=== PATIENT | male | born 1955 | race Caucasian/White ===

== ENCOUNTER 2017-07-11 08:56 | Emergency (ER) | payer MEDICARE, OTHER ==
[2017-07-11] MEDS ORDERED: Lidocaine 2% VISCOUS* 15 ML UDC PO ONE (10:14)
[2017-07-11] MEDS ORDERED: Al Hydrox/Mg Hydrox/Simet LIQ* 30 ML UDC PO ONE (10:14)
[2017-07-11] MEDS ORDERED: Nitroglycerin 2% OINT* 1 GM PAK TOPICAL ONE (10:28)
--- NOTE | 2017-07-11 10:48 | RAD ---
HISTORY: Chest pain COMPARISONS: March 15, 2011 VIEWS: 1: frontal portable view of the chest at 10:27 AM FINDINGS: LINES AND TUBES: None. CARDIOMEDIASTINAL SILHOUETTE: The cardiomediastinal silhouette is normal for portable technique. PLEURA: The costophrenic angles are sharp. No pleural abnormalities are noted. LUNG PARENCHYMA: The lungs are clear. ABDOMEN: The upper abdomen is clear. There is no subphrenic gas. BONES AND SOFT TISSUES: The patient is status post median sternotomy. IMPRESSION: NO ACTIVE CARDIOPULMONARY DISEASE.
[2017-07-11 11:07] LABS: ABS Basophils 0 10^3/ul (0-0.2); ABS Eosinophils 0.2 10^3/ul (0-0.6); ABS Lymphocytes 1.7 10^3/ul (1.0-4.8); ABS Monocytes 0.4 10^3/ul (0-0.8); ABS Neutrophils 2.6 10^3/ul (1.5-7.7); ABS Nucleated RBC 0 10^3/ul; Eosinophil % 4.7 % (0-6); Hematocrit 45 % (42-52); Hemoglobin 15.3 g/dl (14.0-18.0); Lymphocyte % 34.3 % (25-47); Mean Corpuscular HGB Conc 34 g/dl (31-36); Mean Corpuscular Hemoglobin 31 pg (27-31); Mean Corpuscular Volume 92 fL (80-94); Mean Platelet Volume 8 um3 (7.4-10.4); Nucleated Red Blood Cells % 0.1; Platelet Count 156 10^3/ul (150-450); Red Cell Distribution Width 14 % (10.5-15)
[2017-07-11 11:22] LABS: EGFR Non-African American 73.5 (>60)
[2017-07-11 12:31] VITALS: BP 119/68
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
== END 2017-07-11 12:30 | disposition left against medical advice (07) ==
LOC: ED 08:56
DX: I20.9 Angina pectoris, unspecified (principal); Z53.21 Procedure and treatment not carried out due to patient leaving prior to being seen by health care provider; I25.10 Atherosclerotic heart disease of native coronary artery without angina pectoris; Z95.1 Presence of aortocoronary bypass graft; J45.909 Unspecified asthma, uncomplicated; E78.00 Pure hypercholesterolemia, unspecified; I10 Essential (primary) hypertension; I25.2 Old myocardial infarction; Z72.0 Tobacco use
CPT/HCPCS: 36415; 71045; 80053; 83605; 84484; 85025; 93005; 99283; A9270-GY

== ENCOUNTER 2017-07-24 23:20 | Observation (INO) | payer MEDICARE, OTHER ==
[2017-07-25 00:29] LABS: ABS Basophils 0 10^3/ul (0-0.2); ABS Eosinophils 0.4 10^3/ul (0-0.6); ABS Lymphocytes 1.9 10^3/ul (1.0-4.8); ABS Monocytes 0.6 10^3/ul (0-0.8); ABS Neutrophils 3.3 10^3/ul (1.5-7.7); ABS Nucleated RBC 0 10^3/ul; Eosinophil % 6.8 % (0-6); Hematocrit 42 % (42-52); Hemoglobin 14.4 g/dl (14.0-18.0); Lymphocyte % 30.8 % (25-47); Mean Corpuscular HGB Conc 34 g/dl (31-36); Mean Corpuscular Hemoglobin 31 pg (27-31); Mean Corpuscular Volume 92 fL (80-94); Mean Platelet Volume 8 um3 (7.4-10.4); Nucleated Red Blood Cells % 0.1; Platelet Count 165 10^3/ul (150-450); Red Cell Distribution Width 14 % (10.5-15); White Blood Count 6.3 10^3/ul (3.5-10.8)
[2017-07-25 00:34] LABS: INR 0.96 (0.77-1.02)
[2017-07-25 00:40] LABS: EGFR Non-African American 60.4 (>60)
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
[2017-07-25] MEDS ORDERED: Docusate CAP* 100 MG PO PRN (01:22)
[2017-07-25] MEDS ORDERED: Senna TAB PO PRN (01:22)
[2017-07-25] MEDS ORDERED: Al Hydrox/Mg Hydrox/Simet LIQ* 30 ML UDC PO PRN (01:22)
[2017-07-25] MEDS ORDERED: Ondansetron INJ* 2 MG/ML VIAL IV PRN (01:22)
[2017-07-25] MEDS ORDERED: Aspirin TAB* 325 MG PO ONE (01:39)
[2017-07-25] MEDS ORDERED: Mouth Piece, Nicotine* 1 EACH CARTRIDGE INH PRN ×2 (01:40)
[2017-07-25] MEDS ORDERED: Nicotine Inhaler* 10 MG AMP INH PRN (01:40)
[2017-07-25] MEDS ORDERED: Albuterol 2.5 MG/3 ML NEB.SOL* (0.083%) INH PRN (01:41)
[2017-07-25] MEDS: Acetaminophen TAB* 325 MG PO PRN ×2 (03:23→10:45)
[2017-07-25] MEDS: NS 0.9% 1000 ML* 1,000 ML IV SCH ×2 (03:24→10:48)
[2017-07-25 05:13] LABS: EGFR Non-African American 65.3 (>60)
[2017-07-25] MEDS: Heparin VIAL(*) 5000 UNITS/ML VIAL (FIVE THOUSAND) SUBCUT SCH ×2 (05:23→15:08)
--- NOTE | 2017-07-25 08:03 | RAD ---
INDICATION: Chest pain. COMPARISON: Comparison is made with a prior study from July 11, 2017. TECHNIQUE: A portable view of the chest was obtained. FINDINGS: The patient is status post coronary artery bypass surgery. Note is made of multiple sternal sutures. The heart is within normal limits in size. The lungs are underinflated and grossly clear. No pleural effusion is seen. IMPRESSION: NO EVIDENCE FOR ACUTE FINDING.
[2017-07-25] MEDS ORDERED: Sertraline* 100 MG TAB PO SCH (09:00)
[2017-07-25] MEDS ORDERED: Mometasone/Formoter 100/5 MDI INH SCH (09:00)
[2017-07-25] MEDS ORDERED: buPROPion SR TAB.SR* 150 MG PO SCH (09:00)
[2017-07-25] MEDS ORDERED: Clopidogrel TAB* 75 MG PO SCH (09:00)
[2017-07-25] MEDS ORDERED: Aspirin EC Low Dose* 81 MG TAB.EC PO SCH (09:00)
[2017-07-25] MEDS ORDERED: Lisinopril TAB* 5 MG PO SCH (09:00)
[2017-07-25] MEDS ORDERED: Regadenoson* 0.4 MG/5 ML SYRINGE ONE (09:40)
[2017-07-25] MEDS ORDERED: Morphine INJ* 2 MG/ML 1 ML CARPUJECT ONE (11:42)
--- NOTE | 2017-07-25 11:54 | PN ---
Subjective Date of Service: 07/25/17 Objective Active Medications: Acetaminophen (Tylenol Tab*) 650 mg PO Q4H PRN Al Hydrox/Mg Hydrox/Simethicone (Maalox Plus*) 30 ml PO Q6H PRN Albuterol (Ventolin 2.5 Mg/3 Ml Neb.Ariane*) 2.5 mg INH Q4H PRN Aspirin (Aspirin Ec Low Dose*) 81 mg PO DAILY [facility] Atorvastatin Calcium (Lipitor*) 20 mg PO 2100 [facility] Atorvastatin Calcium (Lipitor*) 40 mg PO 2100 [facility] Bupropion HCl (Wellbutrin Sr Tab*) 150 mg PO DAILY [facility] Clopidogrel Bisulfate (Plavix Tab*) 75 mg PO DAILY [facility] Device (Nicotine Mouth Piece*) 1 each INH .USE WITH NICOTROL PRN Docusate Sodium (Colace Cap*) 100 mg PO BID PRN Heparin Sodium (Porcine) (Heparin Vial(*)) 5,000 units SUBCUT Q8HR [facility] Sodium Chloride (Ns 0.9% 1000 Ml*) 1,000 mls @ 150 mls/hr IV PER RATE [facility] Lisinopril (Prinivil Tab*) 5 mg PO DAILY [facility] Mometasone Furoate/Formoterol Fumar (Dulera 100/5 Mdi*) 2 puff INH BID [facility] Nicotine (Nicotine Inhaler*) 10 mg INH Q2H PRN Ondansetron HCl (Zofran Inj*) 4 mg IV Q4H PRN Senna (Senokot Tab*) 1 tab PO BID PRN Sertraline HCl (Zoloft*) 100 mg PO DAILY [facility] Tamsulosin HCl (Flomax Cap*) 0.4 mg PO BEDTIME [facility] Vital Signs: Temp Pulse Resp BP Pulse Ox 98.4 F 66 16 121/73 95 07/25/17 02:40 07/25/17 07:13 07/25/17 07:13 07/25/17 07:13 07/25/17 07:13 Oxygen Devices in Use Now: None Result Diagrams: 07/25/17 00:08 07/25/17 04:19 Additional Lab and Data: . Assess/Plan/Problems-Billing Assessment: Mr. Gracia is a 62 yo male with a PMH of COPD, hyperlipidemia, depression who was admitted on 07/25/17 with chest pain - Patient Problems (1) Chest pain Comment: - Stress test pending. - Trops negative. - Continue aspirin, plavix, atorvastatin. (2) COPD (chronic obstructive pulmonary disease) (3) Hypertension Comment: - Continue lisinopril. (4) Depression Comment: - Continue sertraline, bupropion. (5) Hyperlipidemia Comment: - Continue atorvastatin. (6) DVT prophylaxis Comment: - Heparin SQ. (7) Full code status Comment: Status and Disposition: OBV. Anticipate discharge to home when medically stable.
--- NOTE | 2017-07-25 12:34 | RAD ---
HISTORY: Chest pain COMPARISONS: July 09, 2014 TECHNIQUE: A 1 day stress/rest myocardial perfusion study was performed, with pharmacologic stress. The stress portion was monitored by Dr. Wells. Gated SPECT imaging was performed, without CT-based attenuation correction secondary patient body habitus. DOSE: Stress: Technetium 99m tetrofosmin, 25.6 millicuries, injected at 11:30 AM on July 25, 2017 Rest: Technetium 99m tetrofosmin, 10.19 millicuries, injected at 6:50 AM on July 25, 2017 Pharmacologic agent: Lexiscan FINDINGS: CARDIAC MONITORING: No EKG criteria of ischemia with stress. EF: 58% TID: 1.14 MOTION: Normal motion, with normal wall thickening. PERFUSION: There are small reversible defects of the anterior wall and the lateral wall towards the apex. OTHER: None IMPRESSION: SMALL REVERSIBLE DEFECTS OF THE ANTERIOR WALL AND LATERAL WALL TOWARDS THE APEX CONCERNING FOR AREAS OF ISCHEMIA. ASSESSMENT: LOW RISK. Based on imaging criteria from ACC/AHA 2002. Guideline Update for the Management of Patient's with Chronic Stable Angina, table 23. Noninvasive Risk Stratification. CPT II Codes: 3570F
--- NOTE | 2017-07-25 13:11 | HP ---
CC: Jovan Smith MD HISTORY AND PHYSICAL: DATE OF ADMISSION: 07/25/17. TIME OF EVALUATION: 129. PRIMARY CARE PHYSICIAN: Jovan Smith MD. CHIEF COMPLAINT: Chest pain. HISTORY OF PRESENT ILLNESS: This is a 62-year-old male with a past medical history of coronary artery disease status post bypass, hyperlipidemia and hypertension, who presents to the emergency room with indolent ongoing left- sided chest discomfort. The patient states this has been going on for several weeks. He came to the emergency room on the first of July with this complaint. He states that they offered him an admission, but he felt like he really was not understanding what was going on and decided to leave. He states that the pain is left-sided, radiates down to his left arm and is only when he is sleeping and he wakes up with the pain. It seems to be positional as that when he cannot lie on his left side because it makes the pain come on. He has chronic shortness of breath. No recent fever, upper respiratory illness. No nausea, vomiting, or diarrhea. No abdominal discomfort. No diaphoresis. No changes in his weight. Otherwise, review of systems is negative. In the emergency room, the patient had labs and imaging. He was referred to the hospitalist service for further evaluation. PAST MEDICAL HISTORY: 1. History of coronary artery disease, status post bypass in 2007. 2. Hyperlipidemia. 3. Hypertension. 4. COPD. 5. Depression. 6. BPH. 7. Chronic back pain. MEDICATIONS: 1. Albuterol MDI two puffs every 6 hours as needed. 2. Aspirin 81 mg p.o. daily. 3. Atorvastatin 60 mg daily. 4. Bupropion 150 mg p.o. daily. 5. Plavix 75 mg p.o. daily. 6. Fluticasone-Salmeterol, 100-50 mg twice daily. 7. Ibuprofen 300 mg as needed. 8. Lisinopril 5 mg daily. 9. Sertraline 100 mg daily. 10. Tamsulosin 0.4 mg p.o. daily. ALLERGIES: No known drug allergies. FAMILY HISTORY: Mother from an accident due to grand mal seizure. Father from old age, but he had several heart attacks throughout his life. SOCIAL HISTORY: Patient lives at home with his . He still smokes half a pack per day for the past 45 to 50 years. No alcohol use. He states he was a heavy drinker back in more than 30 years ago. He is on disability since his heart attack. He states he does not have a healthcare proxy, would not designate his as she is a very simple person. CODE STATUS: Full code. REVIEW OF SYSTEMS: A 14-point review of systems as mentioned in the HPI, otherwise negative. DIAGNOSTIC STUDIES/LAB DATA: White count 6.3, hemoglobin 14.4, hematocrit 42, platelets 165, INR 0.96. Sodium 139, potassium 4.1, chloride 105, bicarb 29, BUN 21, creatinine 1.21, troponin 0.01, TSH 3.02. Radiographic data: EKG shows normal sinus rhythm. Chest x-ray shows some mild vascular congestion. ASSESSMENT: This is a 62-year-old male with a past medical history of coronary artery disease status post bypass, who presents to the emergency room with atypical chest pain. 1. Atypical chest pain. Assessment: This appears to be positional musculoskeletal related. However, this is his second visit in the past week with similar symptoms and he is high risk with his history of coronary artery disease. His initial workup is unremarkable. Plan: It is not unreasonable to admit him for observation to rule out myocardial infarction. We will trend his troponin, check a lipid panel, keep him n.p.o. and order a nuclear stress test and I will add on BNP given his chest x-ray findings. We will hold off on diuresing him at this time as he appears comfortable. 2. Chronic medical problems. We will resume his home medications. There is some discrepancy with his antidepressant agents. I would call med rec to confirm what he is actually taking. I did continue him on his bupropion and sertraline, but I would confirm with home meds if this is what he is taking. 3. FEN. As mentioned, n.p.o. 4. DVT prophylaxis. The patient scores a high risk. We will place him on heparin subcu t.i.d. 5. Code status. Full code. PATIENT TIME: Greater than 30 minutes was spent doing the history and physical , more than half the time spent in direct patient contact. [id number]/[facility] #: [id number] ILEANA
--- NOTE | 2017-07-25 13:33 | PN ---
Subjective Date of Service: 07/25/17 Interval History: Mr. Gracia reports continuing to have some pain in his left arm when he lies flat. He denies other complaint today and is very eager for discharge to home. Objective Active Medications: Acetaminophen (Tylenol Tab*) 650 mg PO Q4H PRN Al Hydrox/Mg Hydrox/Simethicone (Maalox Plus*) 30 ml PO Q6H PRN Albuterol (Ventolin 2.5 Mg/3 Ml Neb.Ariane*) 2.5 mg INH Q4H PRN Aspirin (Aspirin Ec Low Dose*) 81 mg PO DAILY [facility] Atorvastatin Calcium (Lipitor*) 40 mg PO 2100 [facility] Bupropion HCl (Wellbutrin Sr Tab*) 150 mg PO DAILY [facility] Clopidogrel Bisulfate (Plavix Tab*) 75 mg PO DAILY [facility] Device (Nicotine Mouth Piece*) 1 each INH .USE WITH NICOTROL PRN Docusate Sodium (Colace Cap*) 100 mg PO BID PRN Heparin Sodium (Porcine) (Heparin Vial(*)) 5,000 units SUBCUT Q8HR [facility] Lisinopril (Prinivil Tab*) 5 mg PO DAILY [facility] Mometasone Furoate/Formoterol Fumar (Dulera 100/5 Mdi*) 2 puff INH BID [facility] Nicotine (Nicotine Inhaler*) 10 mg INH Q2H PRN Ondansetron HCl (Zofran Inj*) 4 mg IV Q4H PRN Senna (Senokot Tab*) 1 tab PO BID PRN Sertraline HCl (Zoloft*) 100 mg PO DAILY [facility] Tamsulosin HCl (Flomax Cap*) 0.4 mg PO BEDTIME [facility] Vital Signs - 8 hr 07/25/17 07/25/17 07:13 11:01 Temperature 98.4 F Pulse Rate 66 66 Respiratory 16 16 Rate Blood Pressure 121/73 130/70 (mmHg) O2 Sat by Pulse 95 94 Oximetry Oxygen Devices in Use Now: None Appearance: Male sitting up in chair in NAD Eyes: No Scleral Icterus Ears/Nose/Mouth/Throat: Mucous Membranes Moist Neck: Trachea Midline Respiratory: Symmetrical Chest Expansion and Respiratory Effort, Clear to Auscultation Cardiovascular: NL Sounds; No Murmurs; No JVD, No Edema Abdominal: NL Sounds; No Tenderness; No Distention Lymphatic: No Cervical Adenopathy Extremities: No Edema Skin: No Rash or Ulcers Neurological: Alert and Oriented x 3, NL Muscle Strength and Tone Nutrition: Taking PO's Result Diagrams: 07/25/17 00:08 07/25/17 04:19 Additional Lab and Data: . Assess/Plan/Problems-Billing Assessment: Mr. Gracia is a 62 yo male with a PMH of COPD, hyperlipidemia, depression who was admitted on 07/25/17 with chest pain - Patient Problems (1) Chest pain Comment: - Stress test low risk but with small areas of reversible ischemia. - Trops negative. No ischemia on EKG. - Continue aspirin, plavix, atorvastatin. - Appreciate consultation from Dr. Wells, patient not interested in cardiac cath. 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 (3) Hypertension Comment: - Continue lisinopril. - Plan to add amlodipine and metoprolol for angina. (4) Depression Comment: - Continue sertraline, bupropion. (5) Hyperlipidemia Comment: - Continue atorvastatin. (6) DVT prophylaxis Comment: - Heparin SQ. (7) Full code status Comment: Status and Disposition: OBV. Discharge to home.
[2017-07-25] MEDS ORDERED: Morphine INJ* 2 MG/ML 1 ML CARPUJECT IV PRN (14:46)
[2017-07-25 18:21] VITALS: BP 142/72
[2017-07-25] MEDS ORDERED: Atorvastatin* 20 MG TAB PO SCH (21:00)
[2017-07-25] MEDS ORDERED: Tamsulosin CAP* 0.4 MG PO SCH (21:00)
[2017-07-25] MEDS ORDERED: Atorvastatin* 40 MG TAB PO SCH (21:00)
--- NOTE | 2017-07-25 23:36 | CONS ---
CC: Hospitalist Service; Bam Wells MD * CARDIOLOGY CONSULTATION: DATE OF CONSULT: 07/25/17 HISTORY OF PRESENT ILLNESS: I was asked by hospitalist service to see this 62- year- old male patient who presented to the hospital with atypical symptoms of left arm pain for about a month. The patient is known to me from before. I follow him as an outpatient from cardiac standpoint with extensive cardiac history including coronary artery disease with history of angioplasty, stenting and CABG. In 2009, he had angioplasty and stenting of the mid RCA. He had also angioplasty of the RV branch of the RCA. He had a history of inferior wall myocardial infarction in 2007. At that time, he had CABG with NARAYANAN to the LAD, saphenous venous graft to the marginal and saphenous venous graft to the circ. He had non-ST elevation myocardial infarction after his CABG in June 2008. At that time, he had a cath and he had angioplasty and stenting of the proximal and distal mid RCA and also was found to have saphenous venous graft to be occluded. He does have history of hyperlipidemia and history of systemic arterial hypertension, obesity, current tobacco consumption. He gives no history of diabetes mellitus. He continues to smoke about half a pack every other day. He gives no symptoms of chest pain, no nausea, no vomiting, no hematochezia, no skin rash, no abdominal pain, no fever, no chills, no recent pneumonia, no syncope, no major swelling in the lower extremities. He states for a month, he had been having atypical episodes of left arm pain when he is resting actually. No jaw pain, no right arm pain, and no shortness of breath, no tachycardia, no palpitations. He underwent Myoview nuclear stress test today that was low risk and there are some concerns for reversible ischemia of the inferior wall, apex, and apical to proximal to mid segment of the lateral wall. Cardiology consult was further requested. He is chest pain free. He said he had been taking his medications all of them. PAST MEDICAL HISTORY: As outlined above. ALLERGIES: No known drug allergies. PAST SURGICAL HISTORY: As outlined above. SOCIAL HISTORY: He continues to smoke unfortunately. He gives no history of alcoholism and no drug abuse. MEDICATIONS: His medications as an inpatient include: 1. Tylenol 650 mg p.o. q.4 hours p.r.n. 2. Maalox. 3. Ventolin inhaler. 4. Aspirin 81 mg daily. 5. Lipitor 40 mg daily. 6. Plavix 75 mg daily. 7. Nicotine and also he is on heparin 5000 units subcu q.8 hours. 8. Prinivil 5 mg daily. 9. Flomax 0.4 mg daily. FAMILY HISTORY: No family history of premature coronary artery disease. PHYSICAL EXAMINATION: On exam, he is awake, alert, and oriented. He is not in acute distress. He is chest pain free. His vitals: Blood pressure is 130/70, pulse is 66, he is in sinus rhythm. Respiratory rate 18, temperature 98.4. Head Exam: Normocephalic, atraumatic head. Ears, Nose, and Throat: Essentially benign. Neck: Supple. JVP is not elevated. No carotid bruits. No masses in the neck is appreciated. Chest is clear to auscultation. No rales , no wheezes, no added sounds appreciated. Heart: Normal and regular. S1, S2. No added sounds. No gallops, no rubs. No significant murmurs appreciated. Abdomen: Benign, soft. Positive bowel sounds. Extremities: No edema. No cyanosis. No clubbing. Skin exam is normal. Psych: Normal affect and mood. 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 DIAGNOSTIC STUDIES/LAB DATA: His labs, white blood cell 6.3, hemoglobin 14.4, hematocrit 42, and platelets 165. His chemistry, sodium 139, potassium 4.1, chloride 106, platelets are 228. BUN 18, creatinine 1.13. LFTs are normal. Troponins are 0. CRP 1.21. BNP is only 22. Triglycerides 114, cholesterol 134 , LDL 70, HDL 42. TSH 3.02. His EKG from today showed him to be in sinus rhythm, heart rate 68 beats per minute. There is nondiagnostic RSR. There is posterior infarct. There are possible Q-waves with ST elevation with old inferior wall MO. Nonspecific T abnormality. The nuclear stress test as described, low risk. IMPRESSION: The patient is a 62-year-old male patient with: 1. Presentation with atypical symptom of left arm pain of unclear etiology at rest. 2. Abnormal nuclear stress test as described, low risk. 3. Known history of coronary artery disease with multiple angioplasties, stenting, and CABG as described. 4. Hyperlipidemia, on medical treatment. 5. Obesity. 6. Current tobacco consumption. 7. Abnormal EKG as described. 8. Systemic arterial hypertension. PLAN: I had a lengthy discussion with the patient. Knowing his extensive cardiac history, his symptoms, and abnormal reversible ischemia although it was low risk, my recommendation was to him to evaluate his coronary anatomy and the status of his grafts by definite evaluation with left cardiac catheterization. I made him aware of the benefits and risks, he declined, and he is aware of that. He said he had it multiple times in the past, he does not wish to proceed with it now, but he is open for adjustment of his medications accordingly. I noticed he is not on beta-nancy treatment and he is not on calcium channel nancy treatment of unclear reason for me at the present time. We made a great emphasis for aggressive lifestyle modification with low-salt low-fat diet, attempts to lose weight, physical activity as tolerated. We made great emphasis to quit smoking, I made him aware of this. I discussed him with Lindsey Flores from the hospitalist service. At the present time, we are adding Toprol XL 25 mg daily, Norvasc 2.5 mg daily. He is to continue the rest of his medications as is. He is to observe very closely for the future for any recurrent symptoms especially jaw pain, chest pain, shortness of breath, near syncope or syncope. At that time, cardiac catheterization will be discussed again and low threshold to proceed, this is his wishes. I will follow him closely once he gets discharged from the hospital. His troponins were negative. His EKG did not demonstrate any significant changes. His BNP was only 22. He has no active angina at the present time and he is not in congestive heart failure on physical exam. I answered all his concerns and questions up to his satisfaction. More than half of at least 60 plus minutes was [id number] in the education and counseling mode discussing all of the above and answering his questions. [id number]/[facility] #: [id number] ILEANA
--- NOTE | 2017-07-26 18:22 | DS ---
CC: Dr. Smith * [facility] MEDICINE DISCHARGE SUMMARY: DATE OF ADMISSION: 07/25/17 DATE OF DISCHARGE: 07/25/17 PRIMARY CARE PHYSICIAN: Dr. Smith. ATTENDING PHYSICIAN: Dr. Mani Bernal * (dictation provided by Lindsey Flores NP). PRIMARY DIAGNOSIS: Left arm and chest pain, atypical. SECONDARY DIAGNOSES: 1. History of coronary artery disease with coronary artery bypass grafting in 2007. 2. Hyperlipidemia. 3. Hypertension. 4. Chronic obstructive pulmonary disease. 5. Depression. 6. Benign prostatic hypertrophy. 7. Chronic back pain. MEDICATIONS AT THE TIME OF DISCHARGE: 1. Amlodipine 2.5 mg p.o. daily (new prescription). 2. Metoprolol succinate 25 mg p.o. daily (new prescription). 3. Bupropion SR 150 mg p.o. b.i.d. 4. Tamsulosin 0.8 mg p.o. at bedtime. 5. Sertraline 100 mg p.o. daily. 6. Pravastatin 80 mg p.o. at bedtime. 7. Lisinopril 5 mg p.o. daily. 8. Clopidogrel 75 mg p.o. daily. 9. Atorvastatin 40 mg p.o. daily. 10. Aspirin 81 mg p.o. daily. 11. Albuterol 2 puffs inhaled q.6 hours p.r.n. shortness of breath. 12. Advair Diskus 100/500 one puff inhaled b.i.d. HOSPITAL COURSE: Mr. Gracia is a 62-year-old male with a past medical history of coronary artery disease with CABG in 2007, who presented to the hospital on with concern for chest pain and pain radiating down his left arm. Please see the dictated H and P from Juana Koo DO for complete details. In brief , the patient states he had several weeks of this pain. It seemed to be positional in nature and he felt it most when lying flat in bed. He never experienced it with activity, although his activity level is quite limited. In the emergency room, Mr. Gracia had a troponin, which was 0.01. He had an EKG which showed no evidence of ischemia. He was placed on observation in the hospital to rule out acute coronary syndrome. Mr. Gracia had a second troponin, which was 0.00. He went on to have a stress test today, which was read as follows: "Small reversible defects of the anterior wall and lateral wall towards the apex concerning for areas of ischemia. Low risk." Because of this abnormality, I did ask the patient to be seen in consultation by Dr. Wells. I refer you to his note for complete details; however, he discussed the case at length with Mr. Gracia, who indicated that he is not interested in going on for any cardiac catheterization at this time or in the future. Dr. Wells felt that the pain was atypical, but that he could benefit from a more intensified medical management of his coronary artery disease. Therefore, the patient has been placed on amlodipine and metoprolol in addition to his home lisinopril, aspirin and Plavix. He will be following up with Dr. Wells outpatient closely. In terms of the origin of the patient's pain, it appears to be more cervical in nature, but as the cardiac origin was ruled out, I think the patient is safe for followup with Dr. Smith as an outpatient for MRI as needed. DISPOSITION: To home. DIET: Heart healthy. ACTIVITY: As tolerated. FOLLOWUP PLANS: 1. Please follow up with Dr. Smith. The patient has been asked to call for an appointment in the next 1 to 2 weeks. 2. Please follow up with Dr. Wells. The patient was asked to call for an appointment in the next 1 to 2 weeks. TIME SPENT: Approximately 60 minutes was spent on the discharge of this patient , more than half the time was spent with the patient at the bedside reviewing the events leading up to this hospitalization, performing the physical examination and reviewing my plan of care. LINDSEY FLORES, ANDREAS [id number]/[facility] #: [id number] ILEANA
== END 2017-07-25 19:55 | disposition home or self-care (01) ==
LOC: ED 23:20 → MEDTELE 07-25 01:22
PROVIDERS: ADMIT Pediatrics; ATTEND Pediatrics
DX: R07.89 Other chest pain (principal); I25.10 Atherosclerotic heart disease of native coronary artery without angina pectoris; Z95.5 Presence of coronary angioplasty implant and graft; E78.5 Hyperlipidemia, unspecified; I10 Essential (primary) hypertension; G47.00 Insomnia, unspecified; R06.02 Shortness of breath; I25.2 Old myocardial infarction; Z79.82 Long term (current) use of aspirin; F17.210 Nicotine dependence, cigarettes, uncomplicated; J44.9 Chronic obstructive pulmonary disease, unspecified; D29.1 Benign neoplasm of prostate; F32.9 Major depressive disorder, single episode, unspecified; M79.602 Pain in left arm; E66.9 Obesity, unspecified; M54.9 Dorsalgia, unspecified; G89.29 Other chronic pain
CPT/HCPCS: 36415; 71045; 78452; 80048; 80053; 80061; 83605; 83690; 83735; 83880; 84443; 84484; 85025; 85379; 85610; 85652; 85730; 86140; 93005; 93017; 94640; 96360; 99285; A9270-GY; A9502; G0378; J1644; J2270; J2405; J2785

== ENCOUNTER 2017-09-20 04:03 | Emergency (ER) | payer MEDICARE ==
[2017-09-20] MEDS ORDERED: Tamsulosin CAP* 0.4 MG PO ONE (04:20)
[2017-09-20 05:23] LABS: ABS Basophils 0 10^3/ul (0-0.2); ABS Eosinophils 0.3 10^3/ul (0-0.6); ABS Lymphocytes 1.8 10^3/ul (1.0-4.8); ABS Monocytes 0.6 10^3/ul (0-0.8); ABS Neutrophils 4.3 10^3/ul (1.5-7.7); ABS Nucleated RBC 0 10^3/ul; Eosinophil % 3.8 % (0-6); Hematocrit 44 % (42-52); Lymphocyte % 25.4 % (25-47); Mean Corpuscular HGB Conc 34 g/dl (31-36); Mean Corpuscular Hemoglobin 32 pg (27-31); Mean Corpuscular Volume 93 fL (80-94); Mean Platelet Volume 8.1 um3 (7.4-10.4); Nucleated Red Blood Cells % 0; Platelet Count 165 10^3/ul (150-450); Red Blood Count 4.76 10^6/ul (4.0-5.4); Red Cell Distribution Width 15 % (10.5-15)
[2017-09-20 05:30] LABS: Urine Appearance Clear; Urine Blood 2+ (Negative); Urine Color Yellow; Urine Ketones Negative (Negative); Urine Protein Negative (Negative); Urine Specific Gravity 1.019 (1.010-1.030); Urine Urobilinogen Negative (Negative)
[2017-09-20 05:37] LABS: EGFR Non-African American 63.4 (>60)
[2017-09-20 06:12] VITALS: BP 121/70
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
== END 2017-09-20 06:12 | disposition home or self-care (01) ==
LOC: ED 04:03
DX: R33.9 Retention of urine, unspecified (principal); N40.0 Benign prostatic hyperplasia without lower urinary tract symptoms; I25.10 Atherosclerotic heart disease of native coronary artery without angina pectoris; E78.00 Pure hypercholesterolemia, unspecified; I10 Essential (primary) hypertension; I25.2 Old myocardial infarction; J45.909 Unspecified asthma, uncomplicated; Z95.1 Presence of aortocoronary bypass graft; F17.210 Nicotine dependence, cigarettes, uncomplicated
CPT/HCPCS: 36415; 51702; 80048; 81003; 81015; 85025; 87086; 99283

== ENCOUNTER 2017-12-27 10:34 | Emergency (ER) | payer MEDICARE ==
[2017-12-27] MEDS ORDERED: Aspirin 81 mg CHEW TAB* 81 MG TAB.CHEW PO ONE (10:43)
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
[2017-12-27 11:04] LABS: ABS Basophils 0 10^3/ul (0-0.2); ABS Eosinophils 0.3 10^3/ul (0-0.6); ABS Lymphocytes 1.6 10^3/ul (1.0-4.8); ABS Monocytes 0.6 10^3/ul (0-0.8); ABS Nucleated RBC 0 10^3/ul; Hematocrit 45 % (42-52); Hemoglobin 15.8 g/dl (14.0-18.0); Mean Corpuscular HGB Conc 35 g/dl (31-36); Mean Corpuscular Hemoglobin 32 pg (27-31); Mean Corpuscular Volume 93 fL (80-94); Mean Platelet Volume 7.6 um3 (7.4-10.4); Nucleated Red Blood Cells % 0.1; Platelet Count 179 10^3/ul (150-450); Red Blood Count 4.87 10^6/ul (4.00-5.40); Red Cell Distribution Width 15 % (10.5-15); White Blood Count 6.6 10^3/ul (3.5-10.8)
--- NOTE | 2017-12-27 11:27 | RAD ---
Indication: Chest pain; LEFT chest/rib pain since Saturday. Cardiac disease. Respiratory disease. Comparison: December 09, 2017 CT abdomen Technique: Upright AP 1056 hours Report: Moderate prominence of the interstitial markings without change. No new pulmonary opacity, pleural effusion, or pneumothorax. Median sternotomy wires. Negative for cardiomegaly. Unremarkable central pulmonary vasculature and mediastinal contours. No rib fracture visualized. IMPRESSION: #. Chronic moderate prominence of interstitial markings. #. No superimposed acute cardiopulmonary process evident.
--- NOTE | 2017-12-27 11:40 | RAD ---
HISTORY: rib pain, trauma COMPARISONS: None VIEWS: 5, Frontal view of the chest with frontal and oblique views of the left hemithorax FINDINGS: There is no displaced rib fracture or pneumothorax. The visualized lungs are clear. The patient is status post median sternotomy. There is a scoliotic curvature of the spine. Degenerative changes are noted. IMPRESSION: NO DISPLACED RIB FRACTURE OR PNEUMOTHORAX
[2017-12-27] MEDS ORDERED: HYDROcodone/ACETAMIN 5-325 MG* 1 TAB PO ONE (12:14)
[2017-12-27 12:47] VITALS: BP 114/81
== END 2017-12-27 12:48 | disposition home or self-care (01) ==
LOC: ED 10:34
DX: S20.20XA Contusion of thorax, unspecified, initial encounter (principal); W01.0XXA Fall on same level from slipping, tripping and stumbling without subsequent striking against object, initial encounter; Y92.9 Unspecified place or not applicable; R07.89 Other chest pain; F17.210 Nicotine dependence, cigarettes, uncomplicated; Z95.1 Presence of aortocoronary bypass graft
CPT/HCPCS: 36415; 71045; 80053; 82550; 82553; 83735; 83880; 84443; 84484; 85025; 85730; 93005; 99283; A9270-GY

== ENCOUNTER 2018-02-17 08:42 | Emergency (ER) | payer MEDICARE, OTHER ==
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
[2018-02-17] MEDS ORDERED: Acetaminophen TAB* 325 MG PO ONE (09:16)
[2018-02-17 09:23] LABS: EGFR Non-African American 69.6 (>60)
[2018-02-17 09:30] LABS: Urine Appearance Clear; Urine Blood Negative (Negative); Urine Color Yellow; Urine Ketones Negative (Negative); Urine Protein Negative (Negative); Urine Specific Gravity 1.012 (1.010-1.030); Urine Urobilinogen Negative (Negative)
[2018-02-17 10:02] VITALS: BP 100/77
== END 2018-02-17 10:45 | disposition home or self-care (01) ==
LOC: ED 08:42
DX: R33.9 Retention of urine, unspecified (principal); R51 Headache; I25.10 Atherosclerotic heart disease of native coronary artery without angina pectoris; I25.2 Old myocardial infarction; F17.210 Nicotine dependence, cigarettes, uncomplicated; I10 Essential (primary) hypertension
CPT/HCPCS: 36415; 80048; 81003; 99283; A9270-GY

== ENCOUNTER → 2018-02-17 18:37 | Emergency (ER) | payer MEDICARE ==
[~2018-02-17 18:37] MED LIST: Bisacodyl SUPP* 10 MG SUPP PR ONE; Magnesium CITRATE* 300 ML BTL PO ONE; Phenazopyridine TAB* 100 MG PO ONE
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
[2018-02-18 02:44] VITALS: BP 120/70
--- NOTE | 2018-02-18 07:59 | RAD ---
HISTORY: constipation COMPARISONS: None VIEWS: Frontal supine and upright views of the abdomen. FINDINGS: BOWEL: There is a nonspecific bowel gas pattern, with nondilated small bowel gas noted. There is a large amount of stool within the colon. CALCULI: There is a 1 cm calculus of the right upper quadrant gallstone. Vascular calcifications pelvis. BONES AND SOFT TISSUES: The patient is status post median sternotomy. OTHER FINDINGS: The lung bases are clear. There is no subphrenic gas. IMPRESSION: 1. NONSPECIFIC BOWEL GAS PATTERN. 2. LARGE AMOUNT OF STOOL THROUGHOUT THE COLON. 3. CHOLELITHIASIS. R2
--- NOTE | 2018-02-19 09:05 | ED ---
Progress - Progress Note Progress Note: Patient's final x-ray read reveals "impression: 1. Nonspecific bowel gas pattern. 2. Large amount of stool through the colon. 3. Cholelithiasis." Provider who investigated patient's symptoms reported constipation only on x- ray and discharged patient with mag citrate to see if this would alleviate his discomfort as he also had nausea with vomiting. Additionally, the patient was reporting urinary issues with his Richter catheter. A bladder scan was performed and there did not appear to be retaining fluid in the bladder. Patient was advised to follow-up with Dr. Sandra. Attempted to contact patient to update his symptoms and see if he had had follow -up regarding his urinary symptoms. Also wanted to talk to patient about the cholelithiasis observed on abdominal x-ray as this could indicate cholecystitis. Patient did not have labs performed to assess liver function, pancreatic enzymes nor did he have an ultrasound to look at the gallbladder as he was dx'd w/ constipation. If his symptoms persist despite clearing his bowels and Dr. Sandra does not feel that any of his symptoms are coming from his catheter or system, patient may benefit from a more dedicated gallbladder workup. Attempted to contact patient. Phone ringing without opportunity to leave a voicemail and in fact it eventually went into a busy tone. No other numbers available to call. Will mail letter to patient. human resources file clerk aware. Course/Dx - Course Course Of Treatment: A 62 y/o male presents to ED c/o penile pain, vomiting and urine leaking through penis reaching 8/10 in severity. In the ED room, the patient has a pulse of 81 BPM, O2 saturation of 94% and blood pressure of 111/ 82. A Abdomen XR revealed excessive stool consistent with constipation. In the ED course, the patient received Citrate of Magnesia, Pyridium Tab and Dulcolax. Patient will be discharged with a diagnosis of constipation, urinary retention and richter catheter. Patient will be sent home with Pyridium. Patient is to follow up with urologist, Dr. Sandra, tomorrow. Patient is agreeable with this plan. - Diagnoses Provider Diagnoses: Urinary retention, Richter catheter present, Constipation Discharge - Sign-Out/Discharge Documenting (check all that apply): Post-Discharge Follow Up - Discharge Plan Condition: Stable Disposition: HOME Prescriptions: Phenazopyridine TAB* [Pyridium 100 mg TAB*] 100 mg PO TID PRN #10 tab MDD 3 PRN Reason: Pain Patient Education Materials: Constipation (ED), Urinary Retention in Men (ED), Richter Catheter Placement and Care (ED) Referrals: Bam Wells MD [Primary Care Provider] - Kyler Sandra MD [Medical Doctor] - 1 Day Additional Instructions: FOLLOW UP WITH DR. SANDRA TOMORROW. TAKE MEDICATION PRESCRIBED. RETURN TO ED FOR ANY NEW OR WORSENING SYMPTOMS. - Billing Disposition and Condition Condition: STABLE Disposition: Home
== END | disposition home or self-care (01) ==
LOC: ED 18:37
DX: R33.9 Retention of urine, unspecified (principal); K59.00 Constipation, unspecified; F17.210 Nicotine dependence, cigarettes, uncomplicated; Z96.0 Presence of urogenital implants
CPT/HCPCS: 74019; 99282; A9270-GY

== ENCOUNTER 2018-11-20 11:07 | Observation (INO) | payer MEDICARE ==
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
[2018-11-20] MEDS ORDERED: ALPRAZolam TAB* 0.5 MG PO ONE (11:35)
[2018-11-20 12:13] LABS: ABS Eosinophils 0.3 10^3/ul (0-0.6); ABS Lymphocytes 1.6 10^3/ul (1.0-4.8); ABS Monocytes 0.5 10^3/ul (0-0.8); ABS Neutrophils 3.1 10^3/ul (1.5-7.7); Eosinophil % 5.3 %; Hematocrit 44 % (42-52); Lymphocyte % 28.9 %; Mean Corpuscular HGB Conc 34 g/dL (31-36); Mean Corpuscular Hemoglobin 31 pg (27-31); Mean Corpuscular Volume 93 fL (80-94); Mean Platelet Volume 8.1 fL (7.4-10.4); Nucleated Red Blood Cells % 0.1; Platelet Count 159 10^3/uL (150-450); Red Blood Count 4.78 10^6 /uL (4.18-5.48); Red Cell Distribution Width 14 % (10-15); White Blood Count 5.6 10^3/uL (3.5-10.8)
[2018-11-20 12:26] LABS: Urine Appearance Clear; Urine Bilirubin Negative (Negative); Urine Blood Negative (Negative); Urine Color Yellow; Urine Glucose Negative (Negative); Urine Ketones Negative (Negative); Urine Nitrite Negative (Negative); Urine Protein Negative (Negative); Urine Specific Gravity 1.023 (1.010-1.030); Urine Urobilinogen Negative (Negative)
[2018-11-20 12:30] LABS: Albumin 3.9 g/dL (3.2-5.2); Albumin/Globulin Ratio 1.4 (1-3); Calcium 9.3 mg/dL (8.6-10.3); EGFR African American 77.2 (>60); EGFR Non-African American 63.8 (>60); Globulin 2.7 g/dL (2-4); Magnesium 2.2 mg/dL (1.9-2.7); Potassium 4.7 mmol/L (3.5-5.0); Total Bilirubin 0.4 mg/dL (0.2-1.0); Total Protein 6.6 g/dL (6.4-8.9)
[2018-11-20 13:04] LABS: TSH (Thyroid Stimulating Horm) 1.89 mcIU/mL (0.34-5.60)
[2018-11-20] MEDS ORDERED: Magnesium Hydroxide LIQ* 30 ML UDC PO PRN (15:47)
--- NOTE | 2018-11-20 17:42 | HP ---
CC: Dr. Jovan Smith; Dr. Isak Wells * ADMISSION HISTORY AND PHYSICAL: DATE OF ADMISSION: 11/20/18 PRIMARY CARE PROVIDER: Dr. Jovan Smith. NUTRITION ASSISTANT: Dr. Isak Wells. ATTENDING FOR THIS ADMISSION: Dr. Susana Wynne.* (DICTATED BY JARED SALAZAR NP) CHIEF COMPLAINT: Syncope and collapse with associated dizziness. HISTORY OF PRESENT ILLNESS: Mr. Gracia is a very pleasant 63-year-old male patient with a history of vertigo, coronary artery disease, hypertension, obesity, tobacco use, hyperlipidemia, and depression who presented in the emergency department today after an episode of some vertigo symptoms that resulted in what he felt was a syncopal episode. The patient does describe that he was sitting on the stool and felt like his legs were going numb. When he went to go stand on the floor, he was unable to reach the floor and felt like he could not feel his feet. When he leaned forward, he described feeling dizzy and then blacking out and waking up on the floor. The patient states he was then brought to the emergency department for evaluation. His chief complaint, though, was more musculoskeletal in nature. He has some neck pain, headache, with some left hip pain and back pain. He did receive imaging in the emergency department. There were no fractures or acute bone injuries. However , given his syncope and current medical history, he was referred to hospitalist for admission. PAST MEDICAL HISTORY: As stated above, vertigo, coronary artery disease, hypertension, obesity, tobacco use, hyperlipidemia, and depression. PAST SURGICAL HISTORY: Significant for three-vessel CABG with stents x4, left forearm ORIF secondary to traumatic fracture, and vein grafting in the right lower extremity for his CABG. MEDICATIONS AT HOME: Include: 1. Wellbutrin SR 150 mg p.o. b.i.d. 2. Zoloft 50 mg daily. 3. Lisinopril 5 mg p.o. daily. 4. Finasteride 5 mg daily. 5. Flomax 0.4 mg p.o. daily. 6. Aspirin 81 mg daily. 7. Lipitor 40 mg daily. 8. Albuterol inhaler 1 puff q.4 hours as needed for shortness of breath. ALLERGIES: No known drug allergies. FAMILY HISTORY: His father had serious coronary artery disease. SOCIAL HISTORY: The patient is an everyday smoker. The patient states that he has been trying to quit; he is down to between 2 and 4 cigarettes per day, but has a many-year history of smoking up to a pack a day. He denies any alcohol use now. He states he quit drinking well over 30 years ago. He did have history of heavy drinking in the past. PHYSICAL EXAMINATION GENERAL: The patient is an older gentleman, in mild amount of distress, rather tearful; otherwise, well appearing and in no overt distress. VITAL SIGNS: Blood pressure 156/77, respiratory rate 18, heart rate 69, O2 saturation 96% on room air with a temperature of 98.3. HEENT: The patient is atraumatic, normocephalic. PERRLA. Nonicteric sclerae. Oral mucosa is moist. Tongue is midline. He is edentulous. NECK: Supple. He is tender over the paraspinal muscles and posterior aspect of his neck and into the trapezius. Some tenderness over the left shoulder and scapula. ABDOMEN: Soft, nontender, nondistended. Positive bowel sounds in all 4 quadrants. : Deferred. MUSCULOSKELETAL: He is tender over the left hip and into the left groin. Also tender into the left knee. There is no bruising or ecchymosis noted. He has + 2 distal pulses noted. He has some bipedal edema at baseline, nonpitting in nature. He has gross motor and sensation intact. Full range of motion and steady gait. NEUROLOGIC: He is grossly intact with no focal deficits. PSYCHIATRIC: He is cooperative, although tearful, but appropriate. DIAGNOSTIC STUDIES/LAB DATA: Laboratory: WBCs 5.6, RBCs 4.78, hemoglobin 15.0 , hematocrit 44, platelets 159. Sodium 140, potassium 4.7, chloride 106, CO2 of 32, BUN 23, creatinine 1.15, GFR 63.8, glucose 108, lactic acid 0.9, calcium 9.3 , magnesium 2.2. Bilirubin 0.40, AST 13, ALT 15, alk phos 88. Troponin is negative at 0.00. Total protein 6.6, albumin 3.9, globulin 2.7, albumin- globulin ratio 1.4. TSH is 1.89. Urinalysis is negative for any acute infective process. Imaging: Brain CT showed no acute intracranial pathology or fractures. Cervical spine CT showed some degenerative spine disease, but no acute fractures. Ankle x- ray, no acute fractures. Hip and pelvis, again no fracture , but some degenerative changes. Knee, lumbar spine and shoulder x-rays also with no acute fractures or osseous injury. IMPRESSION: Mr. Gracia is a 63-year-old male patient who described having some vertigo-like symptoms and then subsequent syncopal episode thereafter. PLAN: The patient has been admitted to inpatient medical service. DIAGNOSES: 1. Syncope. The patient will be admitted to telemetry. I reached out to Dr. Miguel Sanz of cardiology. The patient is a patient of Dr. Wells. He has seen him recently. He states he did have a discussion with Dr. Wells in the past about having pacemaker insertion. The patient is unsure why Dr. Wells did recommend pacemaker in the past; however, the patient states that he did refuse to have pacemaker. He said he is concerned. He is unsure if he needs the device or not and we did have a lengthy discussion regarding the safety of the device and that if the patient did have a rhythm that was dangerous for him that the pacemaker could potentially be lifesaving. The patient did request more information on the pacemaker device. I explained to him that we would defer to cardiology when he understood more definitively what Dr. Wells's recommendations were from his office note. Dr. Sanz will come in and see the patient and obtain office notes to have this discussion further. I am going to obtain an echocardiogram. We do not have a recent one on file. Continue the patient on telemetry. At this point, the CAT scan of his head was negative and he is not exhibiting any current neurologic deficits. 2. History of coronary artery disease with CABG. The patient is not describing any chest pain or any further anginal equivalents. We will continue him on his aspirin, statin, and ZEKE. 3. History of depression. The patient will be continued on his Wellbutrin and his Zoloft. He is currently very tearful, but is understanding of the situation. 4. History of benign prostatic hypertrophy. He will be continued on his Flomax and finasteride. 5. DVT prophylaxis: The patient will be started on heparin q.8 hours. He is high risk for DVT. 6. Diet: Heart-healthy, decaf okay. 7. Ambulation status: Ambulate with assistance as tolerated. 8. Disposition: Inpatient telemetry. TIME SPENT: Approximately 75 minutes interfacing with the patient and developing admission plan of care. This plan of care has been discussed with Dr. Susana Wynne, the attending on this case and she is in agreement with this plan of care. The rest of the patient's course will be determined by further diagnostics, laboratories, and any other input from other providers as warranted during this admission. JARED SALAZAR NP [id number]/[facility] #: [id number]
[2018-11-20] MEDS: oxyCODONE/Acetamin 5/325 MG* TAB PO PRN (18:08)
[2018-11-20] MEDS: Albuterol HFA INHALER* 8 gm MDI INH SCH (19:09)
--- NOTE | 2018-11-20 20:29 | CONS ---
CC: Dr. Akers at [facility]; Dr. Wells * CARDIOLOGY CONSULTATION NOTE: DATE OF CONSULT: 11/20/18 REFERRAL PHYSICIAN: Ms. JiménezBecky Amaliamele. REASON FOR CARDIOLOGY CONSULTATION: Syncope in patient with history of coronary artery disease. HISTORY OF PRESENT ILLNESS: I was kindly asked to see this patient for Cardiology consultation by Joe Nancy given syncope. The patient states he went to [place] office today to have his phone fixed. After he had been waiting there for quite a while, while he was sitting, he noted that his left leg was numb as he was sitting in an awkward stool. When he stood up, he states he had a recurrence of his vertigo and then passed out. The patient denies chest pain and feels that his breathing has been okay. He apparently has spontaneous resumption of consciousness. PAST MEDICAL HISTORY: Includes: 1. Coronary artery disease. History of old inferoapical wall [facility] in 2007. At that time he had CABG in [place] [facility]. NARAYANAN to the LAD, saphenous venous graft to the marginal and saphenous venous graft to the circ. He also had lateral branch of the PDA of the RCA. The patient then had non-ST elevation myocardial infarction after his CABG in 2008 with angioplasty and stenting of the proximal and distal [place] RCA and also was found to have saphenous venous grafts occluded, but widely patent NARAYANAN to the LAD. The patient is followed by my partner, Dr. Wells of [facility]. 2. History of vertigo. 3. Hypertension. 4. Obesity. 5. Tobacco use. 6. Hyperlipidemia. 7. Depression. 8. Obstructive sleep apnea and he is unable to tolerate positive pressure ventilation. 9. BPH. MEDICATIONS: Outpatient medications include: 1. Wellbutrin 150 mg p.o. b.i.d. 2. Zoloft 50 mg once a day. 3. Lisinopril 5 mg once a day. 4. Finasteride 5 mg once a day. 5. Flomax 0.4 mg once a day. 6. Aspirin 81 mg once a day. 7. Lipitor 40 mg once a day. ALLERGIES TO MEDICATIONS: None. The patient denies shrimp, seafood or dye allergy. FAMILY HISTORY: Father had a history of cardiac disease. There is also a family history of cancer. No family history of diabetes or stroke. SOCIAL HISTORY: The patient has smoked cigarettes up to 2 packs per day in the past, but he has reduced quite a bit and is currently "only smoking 2 cigarettes a day". He states he does not abuse alcohol. No use of illicit drugs. 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 He did not graduate high school. He walks frequently up to 2 hours per day. REVIEW OF SYSTEMS: He denies personal history of stroke, cancer, vomiting blood , coughing up blood, bright red blood per rectum, bleeding stomach ulcers, renal calculi, cholelithiasis. He has a history of asthma. He denies COPD. He denies pneumonia. He denies tuberculosis. He has a history of sleep apnea, but is not treating it as he was waking up with a headache, he states with a positive pressure ventilation. He did not use home oxygen. He denies diabetes. He has hypertension. He has prior bypass surgery followed by 4 stents done at [facility] in 2007. He denies heart murmur, palpitations, congestive heart failure. He has a history of depression. He denies lupus, psoriasis, seizures, Parkinson's disease, myasthenia gravis, thyroid disorders, liver disorders, kidney disorders, claudication symptoms, pulmonary emboli, deep venous thrombosis, or peripheral arterial disease. He has occasional edema. He has rare heartburn. All other review of systems are negative x14 except as per this documentation. PHYSICAL EXAM: Height 5 feet 7 inches, weight 252 pounds. Temperature 98.2 degrees Fahrenheit, pulse is 68, blood pressure 107/83 to 128/69, O2 saturation 95%. On general exam, he is a very pleasant gentleman, in no acute distress, lying in the semi upright position in his hospital bed. HEENT shows the cranium is normocephalic and atraumatic. He has dry mucosal membranes. Neck veins are not distended. There are no carotid bruits. Visible skin warm and perfused. Affect appropriate. He appears oriented. No significant kyphoscoliosis on recumbent back exam. Lungs are clear to auscultation. No wheezes, no rales. Cardiac Exam: S1, S2. Regular rate. No significant murmurs, rubs, nor gallops. PMI is nondisplaced. Abdomen: Soft, nondistended, appears benign. Extremities with trivial peripheral edema. Pulses appear grossly intact. DIAGNOSTIC STUDIES/LAB DATA: The patient had a nuclear cardiac stress test completed on 07/25/17, which showed small reversible defects in the anterior wall and lateral wall towards the apex concerning for areas of ischemia per the radiologist with normal left ventricular ejection fraction of 58%, felt to be a low risk stress test. Sodium 140, potassium 4.7, chloride 106, bicarbonate 32, BUN 23, creatinine 1.15. Magnesium 2.2. ALT 15. Troponin 0. TSH 1.89. White blood cell count 5.6, hematocrit 44, platelet count 159. The patient completed 12-lead EKG on 11/20/18 at 12:11, which showed sinus rhythm at 64 beats per minute with no acute disease. IMPRESSION: Mr. Gracia is a pleasant 63-year-old gentleman with a history of coronary artery disease with three-vessel CABG 2007 after an [facility] followed by 4 stents to his RCA in 2008 as above with normal LV function, admitted with orthostatic syncope. Clinically this does not appear to be bradycardic etiology. We do see his blood pressure is on the lower side. The patient has been describing quite a bit of "vertigo" recently, which seems to correlate with him standing up and becoming lightheaded. He describes excellent exercise tolerance with walking up to 2 hours per day. I have discussed this in detail with the patient and making the following recommendations with which he is in agreement. At this time, no pacemaker is required. RECOMMENDATIONS: 1. Recommend finding alternatives to Proscar and Flomax as those medications can worsen orthostasis. If his orthostatic symptoms persist, consider decreasing the lisinopril to 2.5 mg once a day. Continue aspirin, statin. We would hold on a beta-nancy as he reportedly was being considered to have a pacemaker in the past (question bradycardia) especially he does not have angina and his heart rate is controlled. 2. Recommend cigarette smoking cessation. 3. Treat obstructive sleep apnea. 4. Await echocardiogram as previously ordered and can follow patient on telemetry. 5. Other management as per and I have discussed the case with Ms. Cruz of . If above inpatient cardiac evaluation is negative, likely can discharge the patient and he may follow up with his usual telephone repairer, Dr. Wells. Dear Ms. Cruz, many thanks for asking me to participate in the cardiovascular consultative care of Mr. Gracia. Please do not hesitate to contact me if you have any questions or concerns regarding the patient's cardiovascular consultative care. [id number]/[facility] #: [id number] ILEANA
[2018-11-20] MEDS ORDERED: Tamsulosin CAP* 0.4 MG PO SCH (21:00)
[2018-11-20] MEDS: buPROPion SR TAB.SR* 150 MG PO SCH (21:13)
[2018-11-20] MEDS: Finasteride TAB* 5 MG PO SCH (21:13)
[2018-11-20] MEDS: Aspirin EC TAB* 81 MG TAB.EC PO SCH (21:14)
[2018-11-20] MEDS: Lisinopril TAB* 5 MG PO SCH (21:14)
[2018-11-20] MEDS: Sertraline* 50 MG TAB PO SCH (21:14)
[2018-11-20] MEDS: Atorvastatin* 40 MG TAB PO SCH (21:14)
[2018-11-20] MEDS: Heparin VIAL(*) 5000 UNITS/ML VIAL (FIVE THOUSAND) SUBCUT SCH (21:18)
[2018-11-20] MEDS: Acetaminophen TAB* 325 MG PO PRN (21:37)
[2018-11-20] MEDS ORDERED: Ketorolac INJ* 30 MG/ML 1 ML VIAL IV PUSH PRN (21:42)
[2018-11-20] MEDS: Fluticasone NASAL SPRAY 50MCG* 16 gm SPRAY BTL BOTH NARES SCH (23:10)
[2018-11-21] MEDS: Albuterol HFA INHALER* 8 gm MDI INH SCH ×2 (01:17→07:20)
[2018-11-21] MEDS ORDERED: Saline NASAL SPRAY 0.65%* BTL BOTH NARES PRN (01:29)
[2018-11-21] MEDS: Heparin VIAL(*) 5000 UNITS/ML VIAL (FIVE THOUSAND) SUBCUT SCH (05:29)
[2018-11-21 07:35] LABS: ABS Eosinophils 0.2 10^3/ul (0-0.6); ABS Lymphocytes 1.4 10^3/ul (1.0-4.8); ABS Monocytes 0.5 10^3/ul (0-0.8); ABS Neutrophils 3.3 10^3/ul (1.5-7.7); Eosinophil % 4.4 %; Hematocrit 44 % (42-52); Hemoglobin 14.5 g/dL (14.0-18.0); Lymphocyte % 24.9 %; Mean Corpuscular HGB Conc 33 g/dL (31-36); Mean Corpuscular Hemoglobin 31 pg (27-31); Mean Corpuscular Volume 94 fL (80-94); Mean Platelet Volume 7.9 fL (7.4-10.4); Nucleated Red Blood Cells % 0.1; Platelet Count 145 10^3/uL (150-450); Red Blood Count 4.65 10^6 /uL (4.18-5.48); Red Cell Distribution Width 14 % (10-15); White Blood Count 5.4 10^3/uL (3.5-10.8)
[2018-11-21 07:55] LABS: Albumin 3.7 g/dL (3.2-5.2); Albumin/Globulin Ratio 1.5 (1-3); BUN/Creatinine Ratio 22.9 (8-20); Calcium 8.8 mg/dL (8.6-10.3); EGFR African American 85.8 (>60); EGFR Non-African American 70.9 (>60); Globulin 2.5 g/dL (2-4); Total Bilirubin 0.6 mg/dL (0.2-1.0); Total Protein 6.2 g/dL (6.4-8.9)
[2018-11-21] MEDS: Acetaminophen TAB* 325 MG PO PRN (08:39)
[2018-11-21] MEDS: Atorvastatin* 40 MG TAB PO SCH (08:40)
[2018-11-21] MEDS: Finasteride TAB* 5 MG PO SCH (08:40)
[2018-11-21] MEDS: buPROPion SR TAB.SR* 150 MG PO SCH (08:40)
[2018-11-21] MEDS: Sertraline* 50 MG TAB PO SCH (08:40)
[2018-11-21] MEDS: oxyCODONE/Acetamin 5/325 MG* TAB PO PRN (08:40)
[2018-11-21] MEDS: Lisinopril TAB* 5 MG PO SCH (08:40)
[2018-11-21] MEDS: Fluticasone NASAL SPRAY 50MCG* 16 gm SPRAY BTL BOTH NARES SCH (08:41)
[2018-11-21] MEDS: Aspirin EC TAB* 81 MG TAB.EC PO SCH (08:41)
[2018-11-21] MEDS ORDERED: Pneumococcal *Vac Polyvalent 0.5 ML VIAL IM ONE (09:00)
--- NOTE | 2018-11-21 10:34 | ECHO ---
*[facility]* [place] [address] Fax #: [phone] Patient: Basil, Height: 67 in / Ricky Goldberg 170.2 cm : 1955 Weight: 260.5 lb / Study Date: 11/21/2018 118.4 kg Age: 63 BP: 135 / 74 Gender: M BMI/BSA: 40.9 kg/m^2 HR: 95 bpm / 2.26 m^2 *[place] Operator: * Evelina Fleming [facility] *Referring Physician: * Becky Cruz *Reading Physician: * Miguel Sanz MD Indications: Syncope. History: Coronary artery disease. Chronic obstructive pulmonary disease. PMH: Myocardial infarction. Risk factors: Current tobacco use (cigarettes). Hypertension. Hyperlipidemia. Labs, prior tests, procedures, and surgery: Coronary artery bypass grafting. Conclusions Summary: 1. Left ventricle: The cavity size is normal. Wall thickness is normal. Systolic function is normal by visual assessment. The estimated ejection fraction is 55-60%. Small area of akinesis at the inferior base. Small area of akinesis at the basal inferolateral wall. Other segments relatively hyperkinetic. Features are consistent with a pseudonormal left ventricular filling pattern, with concomitant abnormal relaxation and increased filling pressure (grade 2 diastolic dysfunction). 2. Left atrium: The atrium is mildly dilated. 3. Functionally benign heart valves. 4. Mild pulmonary hypertension. 5. There is no prior echocardiogram available to compare with at this time. Study data: Procedure: Transthoracic echocardiography was performed. Image quality was fair. Complete 2D, spectral Doppler, and color flow Doppler. Location: Bedside. Patient status: Inpatient. Patient room number: 442-2. Rhythm: Normal sinus rhythm with PAC's. Findings Left ventricle: The cavity size is normal. Wall thickness is normal. Systolic function is normal by visual assessment. The estimated ejection fraction is 55-60%. Regional wall motion abnormalities: Small area of akinesis at the inferior base. Small area of akinesis at the basal inferolateral wall. Other segments relatively hyperkinetic. Features are consistent with a pseudonormal left ventricular filling pattern, with concomitant abnormal relaxation and increased filling pressure (grade 2 diastolic dysfunction). Right ventricle: The cavity size is mildly dilated. The moderator band is in a normal position. Systolic function is normal. Ventricular septum: Postoperative hypokinesis of the interventricular septum is observed. Left atrium: The atrium is mildly dilated. Right atrium: The atrium is normal in size. Mitral valve: The annulus is calcified. The leaflets are mildly thickened. There is trace regurgitation. Aortic valve: The valve is trileaflet. The leaflets are mildly thickened. There is no evidence of stenosis. There is no regurgitation. Tricuspid valve: The leaflets are normal thickness. There is no evidence of stenosis. There is trace to mild regurgitation. Pulmonic valve: Not well visualized. There is no evidence of stenosis. There is no regurgitation. Aorta: Ascending aorta: The ascending aorta is appears normal. Aortic arch: The aortic arch is appears normal. The aortic root is not dilated. Pericardium: A prominent pericardial fat pad is present. There is no significant pericardial effusion. Pulmonary arteries: Not well visualized. Mild pulmonary hypertension. Systolic pressure is estimated to be 40 mm Hg. Systemic veins: Inferior vena cava: The vessel is dilated. The respirophasic diameter changes are in the normal range (>= 50%). Measurements Left ventricle Value Ref Aortic valve Value Ref SALLY, LAX (L) 3.8 cm 4.2 - 5.8 Maritza diam, ED 2.1 cm ----- ESD, LAX 3.0 cm 2.5 - 4.0 Peak v, S 1.19 m/sec ----- FS, LAX (L) 21 % 25 - 43 VTI, S 21.4 cm ----- PW, ED, LAX 0.9 cm 0.6 - 1.0 Mean grad, S 2.0 mm Hg ----- FS (L) 20 % 25 - 43 Peak grad, S 6.0 mm Hg ----- PW, ED 0.9 cm 0.6 - 1.0 LVOT/AV, VTI ratio 1.12 ----- E', lat maritza, TDI 11.9 cm/sec >=10.0 E/e', lat maritza, 7 Mitral valve Value Ref TDI Peak E 0.84 m/sec ----- E', med maritza, TDI (L) 5.9 cm/sec >=7.0 Peak A 0.44 m/sec --- -- E/e', med maritza, 14 Decel time 243 ms ----- TDI Peak grad, D 2.8 mm Hg ----- E', avg, TDI 8.9 cm/sec Peak E/A ratio 1.9 ----- E/e', avg, TDI 9 <=14 Pulmonic valve Value Ref LVOT Value Ref Peak v, S 1.14 m/sec ----- Peak fiorella, S 1.31 m/sec Peak grad, S 5.0 mm Hg ----- VTI, S 24.0 cm Peak grad, S 7 mm Hg Tricuspid valve Value Ref Mean grad, S 3 mm Hg TR peak v 2.5 m/sec <=2.8 Peak RV-RA grad, S 25 mm Hg ----- Ventricular septum Value Ref IVS, ED 1.0 cm 0.6 - 1.0 Aortic root Value Ref Root diam 3.4 cm <4.3 Right ventricle Value Ref SALLY, LAX 3.4 cm Ascending aorta Value Ref SALLY minor ax, A4C (H) 4.5 cm 1.9 - 3.5 AAo AP diam, S 3.4 cm ----- mid Pressure, S 33 mm Hg Aortic arch Value Ref Arch diam 2.7 cm ----- Left atrium Value Ref AP dim, ES (H) 4.60 cm 3.00 - Decending aorta Value Ref 4.00 Luana peak fiorella 1.15 m/sec ----- ML dim, A4C 4.4 cm SI dim, A4C 5.8 cm Pulmonary artery Value Ref Vol/bsa, ES, 1-p 30 ml/m^2 12 - 37 Pressure, S 28.0 mm Hg ----- A4C Vol/bsa, ES, A/L 32 ml/m^2 16 - 34 Inferior vena cava Value Ref Diam 2.4 cm ----- Right atrium Value Ref SI dim, ES 4.6 cm 3.4 - 5.3 ML dim, ES, A4C 4.3 cm 2.6 - 4.4 SI dim, ES, A4C 4.6 cm 3.4 - 5.3 Estimated RAP 8 mm Hg Legend: (L) and (H) cynthia values outside specified reference range. Prepared and electronically signed by Miguel Sanz MD 11/21/2018 10:33
[2018-11-21 10:45] VITALS: BP 114/64
--- NOTE | 2018-11-21 12:46 | DS ---
CC: Dr. Jovan Smith; Dr. [place] * DISCHARGE SUMMARY: DATE OF ADMISSION: 11/20/18 DATE OF DISCHARGE: 11/21/18 PRIMARY CARE PROVIDER: Dr. Jovan [place]. OUTPATIENT EXTRUSION OPERATOR: Dr. [place]. ATTENDING PHYSICIAN: Dr. Bernal (dictated by Deni Gimenez NP). PRIMARY DIAGNOSES: 1. Syncope. 2. Dizziness. 3. Orthostasis. SECONDARY DIAGNOSES: 1. Vertigo. 2. Coronary artery disease. 3. Hypertension. 4. Obesity. 5. Tobacco use. 6. Hyperlipidemia. 7. Depression. 8. Obstructive sleep apnea without use of CPAP. STUDIES WHILE IN THE HOSPITAL: 1. Brain CT: Impression: No acute intracranial pathology. 2. Cervical spine CT: Impression: Osteopenia, degenerative disk disease, and osteoarthritis, no acute osseous injury to the cervical spine. 3. Left ankle x-ray: Impression: Osteoarthritis. No acute osseous injury. If the symptoms persist, recommend repeat imaging. 4. Hip/pelvis x-ray, left: Impression: No radiographic evidence of hip fracture. X-rays may be negative with nondisplaced hip fracture. If there is persistent clinical concern, recommend consideration of MRI in the setting of contraindication to MRI or limitation in emergent access to MRI, CT would be suggested. 5. Left knee x-ray: Impression: No acute osseous injury. 6. Lumbar spine x-ray: Impression: Degenerative disk disease and osteoarthritis. 7. Shoulder x-ray: No acute osseous injury. 8. Transthoracic echo: Impression: Left ventricle: The cavity size is normal. Wall thickness is normal. Systolic function is normal by visual assessment. The estimated ejection fraction is 55% to 60%. Small area of akinesis at the inferior base. Small area of akinesis at the basal inferolateral wall. Other segments relatively hyperkinetic. Features are consistent with pseudonormal left ventricle filling pattern, with concomitant abnormal relaxation and increased filling pressure (grade 2 diastolic function) . Left atrium: The atrium is mildly dilated. Functional benign heart valves. Mild pulmonary hypertension. 9. EKG: Impression: Sinus rhythm, 65 beats per minute. DISCHARGE MEDICATIONS: [place] Medications: No new home medications. Continued Home Medications: 1. Ventolin 2 puff inhalation q.6 hours p.r.n. 2. Lipitor 40 mg p.o. daily. 3. Aspirin 81 mg p.o. daily. 4. Zoloft 50 mg p.o. daily. 5. Lisinopril 5 mg p.o. daily. 6. Proscar 5 mg p.o. daily. 7. Wellbutrin SR 150 mg p.o. b.i.d. 8. Nitroglycerin 0.4 mg sublingual as needed p.r.n. Discontinued Home Medications: 1. Flomax 0.8 mg p.o. at bedtime. HISTORY OF PRESENT ILLNESS/HOSPITAL COURSE: Mr. Gracia is a 63-year-old male with a past medical history significant for vertigo, CAD, hypertension, obesity , tobacco use, hyperlipidemia, depression, and untreated CLAIRE who presented to the emergency department after an episode of dizziness and syncope. Please see history and physical dictated by Becky Cruz NP, for complete summary of the events leading up to hospitalization, but in short the patient was sitting for a long period of time, felt his legs were "losing sensation." When he went to stand, he remembers blacking out and then waking up with pain. While in the emergency room, the patient had multiple images completed given pain, but no fractures or acute bone injuries were noted. Given his history, the patient was admitted to telemetry for further workup of syncopal episode. During this hospitalization, the patient has been on telemetry. The patient has remained in sinus rhythm. He has had no episodes of bradycardia or any other arrhythmias. The patient did have orthostatics this morning, which revealed a systolic of 114 on lying and a subsequently systolic of 88 when standing. The patient had an echocardiogram as mentioned above. The patient was evaluated by Dr. Sanz and we very much appreciate his assistance with this patient. It is suspected from cardiology standpoint that this was an orthostatic syncopal episode. Given his recent "vertigo," findings of orthostasis on his orthostatic blood pressures and recorded lower blood pressures, cardiology has recommended that the patient stop his Flomax and to follow up with cardiology. It should also be noted that the patient has been free from signs and symptoms of syncope, chest pain, numbness, tingling, or dizziness while admitted. Mr. Gracia is stable for discharge home. Vital Signs: Temp 98.3, HR 65, RR 16, O2 saturation is 93% on room air, BP 104/ 60. REVIEW OF SYSTEMS: The patient denies dizziness, chest pain, palpitations, weakness, syncope, nausea, vomiting, diaphoresis. A 14-point review of systems was completed and all others were negative. PHYSICAL EXAM: General: Mr. Gracia is a 63-year-old male who is sitting in the chair. Appears to be in no acute distress. Appears stated age. HEENT: EOMs are intact. PERRLA. Oral mucosa is moist without lesion. Posterior oropharynx is clear. Neck: Supple. No lymphadenopathy. Cardiac: S1, S2 present. No murmurs, rubs, or gallops. Regular rate and rhythm. Respiratory: Lungs are clear to auscultation. No wheezes, rhonchi, or rubs. Good aeration. Abdomen: Soft and nontender. Bowel sounds are normoactive. Extremities: No edema. Pedal pulses are 2+ bilaterally. No clubbing or cyanosis. Musculoskeletal: No pain or deformities. Skin: Skin is grossly intact. Neuro: Cranial nerves II through XII are grossly intact. Coordination intact. Sensation intact. No drift. Strength is 5/5 in upper and lower extremities. DISCHARGE PLAN/FOLLOWUP: 1. Syncope: On the recommendation of cardiology and due to findings of orthostasis, I have stopped the patient's Flomax. I have educated the patient on signs and symptoms of urinary retention and to follow up with his primary care physician and/or urology if this occurs. I have also educated the patient on changing position safely and adequate hydration. I have also set the patient up with an appointment with his director of midwifery/staff midwife, Dr. [place], on at 10:15. 2. Vertigo: When asked about vertigo, the patient describes dizziness when he is changing positions. He reports this has been going on for some time. He reports if he changed position quickly, bends over and stands up too quickly, or squats down and stands up too quickly, he has momentary dizziness. I suspect this is related to his orthostasis. As mentioned above, the patient's Flomax has been discontinued and he has been educated on ways to prevent orthostasis. 3. Coronary artery disease: The patient has history of coronary artery disease with coronary artery bypass grafting and cardiac stents. The patient should continue his aspirin, Lipitor, lisinopril. I have set up appointment with cardiology as mentioned above. 4. Hypertension: The patient is treated with hypertension and he is on lisinopril. The patient should continue his lisinopril 5 mg. The patient is noted to be orthostatic and hypotensive while in the hospital. We have stopped his Flomax. I have set up an appointment with cardiology. 5. Hyperlipidemia: The patient should continue his Lipitor 40 mg daily. 6. Depression: The patient should continue his Wellbutrin. 7. Followup: As mentioned above, the patient has a scheduled appointment with Dr. [place] on 12/04/18 at 10:15. The patient should also call his primary care provider and set up appointment in 1 to 2 weeks. 8. Education: The patient was educated on signs and symptoms of new or worsening condition and when to return to the emergency department. Both he and his stated understanding. This is a summarized report of a complex medical history and hospital stay. For further details, please see the entire medical record. TIME SPENT: Approximately 40 minutes were spent on this discharge, greater than half the time was spent [id number] with the patient and discussing discharge plans and instructions. DENI GIMENEZ, ANDREAS [id number]/[facility] #: [id number] ILEANA
== END 2018-11-21 12:07 | disposition home or self-care (01) ==
LOC: ED 11:07 → MEDTELE 15:47 → INTOOBSV 15:47
PROVIDERS: ADMIT Internal Medicine; ATTEND Internal Medicine
DX: R55 Syncope and collapse (principal); R42 Dizziness and giddiness; I25.10 Atherosclerotic heart disease of native coronary artery without angina pectoris; I10 Essential (primary) hypertension; E66.9 Obesity, unspecified; E78.5 Hyperlipidemia, unspecified; F32.9 Major depressive disorder, single episode, unspecified; G47.33 Obstructive sleep apnea (adult) (pediatric); Z79.82 Long term (current) use of aspirin; I25.2 Old myocardial infarction; F17.210 Nicotine dependence, cigarettes, uncomplicated
CPT/HCPCS: 36415; 70450; 72100; 72125; 80053; 81003; 83605; 83735; 84153; 84443; 84484; 85025; 90471; 90732; 93005; 93306; 94640; 96372; 96374; 99285; A9270-GY; G0009; G0103; G0378; J1644; J1885